=== PATIENT | male | born 1965 | race American Indian/Alaskan Native ===

== ENCOUNTER 2019-08-23 07:15 | Day surgery (SDC) | payer BC ==
[2019-08-23] MEDS ORDERED: ASPIRIN EC 325 MG TAB PO NR (08:24)
[2019-08-23 08:57] LABS: Basophils % (Auto) 0.7 % (0.0-1.8); Eosinophils # (Auto) 0.5 K/mm3 (0.0-0.4); Eosinophils % (Auto) 12.3 % (0.0-4.3); Hematocrit 42.6 % (35.5-45.6); Lymphocytes # (Auto) 1.6 K/mm3 (1.2-5.4); Lymphocytes % (Auto) 41.9 % (13.4-35.0); Mean Corpuscular HGB Conc 33 % (32-34); Mean Corpuscular Volume 82 fl (84-94); Monocytes # (Auto) 0.3 K/mm3 (0.0-0.8); Monocytes % (Auto) 8.5 % (0.0-7.3); Platelet Count 194 K/mm3 (140-440); Red Blood Count 5.18 M/mm3 (3.65-5.03); Red Cell Distribution Width 13.7 % (13.2-15.2)
[2019-08-23 09:05] LABS: BUN/Creatinine Ratio 21; Blood Urea Nitrogen 19 mg/dL (9-20); Calcium 8.8 mg/dL (8.4-10.2); Hemolysis Index 12
[2019-08-23] MEDS: SODIUM CHLORIDE 0.9% 500 ML 500 ML IV SCH ×2 (09:09→10:29)
[2019-08-23 09:19] LABS: INR 1.08 (0.87-1.13)
[2019-08-23] MEDS ORDERED: HEPARIN/NS 5000 UNIT/500ML 1,000 ML IR ONE (09:28)
[2019-08-23] MEDS ORDERED: HEPARIN 10,000 UNITS/10 ML VIAL ONE (09:28)
[2019-08-23] MEDS ORDERED: MIDAZOLAM 2 MG/2 ML INJ ONE (09:28)
[2019-08-23] MEDS ORDERED: VERAPAMIL 5 MG/2 ML INJ ONE (09:28)
[2019-08-23] MEDS ORDERED: fentaNYL 100 MCG/2 ML INJ ONE (09:28)
[2019-08-23] MEDS ORDERED: LIDOCAINE (2%) 20 MG/1 ML VIAL 20 ML MDV INFILTRATI ONE (09:29)
[2019-08-23] MEDS ORDERED: NITROGLYCERIN SYRINGE 3 ML ONE (09:29)
--- NOTE | 2019-08-23 10:52 | Short Stay Summary ---
Short Stay Documentation Date of service: 08/23/19 - History H&P: obtained from office - Allergies and Medications Current Medications: Allergies hydrocortisone Adverse Reaction (Unverified 08/23/19 07:16) Hives Home Medications Medication Instructions Recorded Confirmed Last Taken Type AtorvaSTATin [Lipitor] 10 mg PO QHS #30 tab 08/23/19 Unknown Rx Cyanocobalamin (Vitamin B-12) 800 mcg PO DAILY 08/23/19 08/23/19 08/22/19 History [Vitamin B12] Ergocalciferol [Vitamin D2] 1 cap PO QWEEK 08/23/19 08/23/19 1 Month Ago History ~07/23/19 Ranolazine [Ranexa] 500 mg PO BID #60 tab.er.12h 08/23/19 Unknown Rx Telmisartan [Micardis] 80 mg PO DAILY 08/23/19 08/23/19 08/22/19 History Active Medications Sodium Chloride (Nacl 0.9% 500 Ml) 500 mls @ 50 mls/hr IV DIRECT FELIX Stop: 08/23/19 18:59 Last Admin: 08/23/19 10:29 Dose: 50 mls/hr Documented by: - Brief post op/procedure progress note Date of procedure: 08/23/19 Pre-op diagnosis: abnormal stress test; cp Post-op diagnosis: other (mild CAD) Procedure: [facility] - see dictated cath report Anesthesia: local Estimated blood loss: none Condition: stable - Disposition Condition at discharge: Good Disposition: DC-01 TO HOME OR SELFCARE - Discharge Diagnoses (1) Mild CAD Status: Chronic Short Stay Discharge Plan Activity: advance as tolerated Diet: low fat, low cholesterol, low salt Wound: open to air, keep clean and dry, per your surgeon's advice Follow up with: GERRY HILTON MD [Primary Care Provider] - 7 Days ARGELIA GRAY MD [Staff Physician] - 7 Days Forms: CardCath PCI D/C Instructions Prescriptions: AtorvaSTATin [Lipitor] 10 mg PO QHS #30 tab Ranolazine [Ranexa] 500 mg PO BID #60 tab.er.12h
--- NOTE | 2019-08-23 11:55 | Cardiac Catherization Report ---
REFERRING PHYSICIAN: Caesar Hamilton MD PRIMARY CARE PHYSICIAN: Amy Do MD INDICATION FOR PROCEDURE: The patient is a pleasant 54-year-old -[place] gentleman with a history of hypertension, having recurrent chest pain with exertion, very typical symptoms with recurrent symptoms with abnormal treadmill stress test yesterday. He has discussed with his , Dr. Amy Do. Referred for left heart catheterization. Risks, benefits, potential alternatives explained at length prior to obtaining informed consent. PROCEDURE IN DETAIL: The patient was brought to catheterization lab in a postabsorptive state, prepped and draped in sterile fashion. Jeffery's test in right hand was normal. A 2 mL of 2% lidocaine used to anesthetize the right wrist. A standard 6-Greenlandic hydrophilic sheath used to cannulate the right radial artery via modified Seldinger technique. All exchanges performed to exchange a J-tip guidewire. JL3.5 catheter was used to engage the left main. No dampening or ventricularization. Cineangiography performed in multiple projections. JR4 catheter was used to cross the aortic valve under fluoroscopic guidance. Left ventriculography performed in 30 JOHNSON and 30 KAZAKH projections via hand injections, catheter flushed. Manual pullback performed with continuous pressure monitoring. Catheter used to engage the right coronary. No dampening or ventricularization. Cineangiography performed in all projections. Next, due to recurrent chest pain and unremarkable proximal and ostial coronary vessels, we decided to proceed with root aortogram in the KAZAKH projection with power injector and pigtail catheter. Next, catheter removed from the body of wire, sheath removed. Manual pressure used to achieve hemostasis. There were no immediate complications. I directly supervised the administration of moderate sedation from 9:59 a.m. to 10:40 a.m. with fentanyl and Versed. There were no immediate complications. RESULTS: Aortic pressure is 110/70, LV pressure is 110, LVEDP of 12 mmHg. Left ventriculography reveals normal systolic performance with estimated ejection fraction of 55-60%, normal LVEDP, normal sinus rhythm throughout. Coronary anatomy: This is a right dominant system. Left main without significant disease, bifurcates to left anterior descending and left circumflex. Left circumflex is a moderate sized vessel, courses AV groove. Scattered luminal irregularities, but no significant disease. LAD is a moderate sized vessel, courses anterior intergroove, wraps around the apex. There is normal small vessel tapering in the distal LAD, possible mild small vessel disease distally. No significant disease noted in the LAD or diagonal systems. The right coronary is a moderate sized vessel, courses AV groove, distally bifurcates in the posterior ____ and posterolateral branches. No discrete stenosis identified. Root aortogram reveals normal contour, normal great vessel anatomy, no evidence of aortic insufficiency. No evidence of dissection, penetrating aortic ulcer. CONCLUSIONS: 1. No angiographic evidence of significant epicardial coronary disease in this right dominant system. 2. Questionable mild diffuse small vessel disease distally in the distal LAD. Medical management. 3. Normal left ventricular systolic performance, estimated ejection fraction of 55-60%. 4. No evidence of aortic stenosis. 5. Normal LVEDP. 6. Normal root aortography without evidence of dissection, penetrating aortic ulcer, or aortic insufficiency. At this point, we will add low dose Ranexa. Results of the procedure were explained at length and reviewed at length with Dr. Do. We will start low dose Ranexa, primary and secondary prevention measures. Check a V/Q scan today. We will check a Holter monitor and echocardiogram in the office. Followup with me. Standard radial care. JOB# [id number] SBSteffany/BAUTISTA
--- NOTE | 2019-08-23 12:08 | Nuclear Medicine Report ---
VENTILATION PERFUSION PULMONARY SCINTIGRAPHY HISTORY: Chest pain, recent heart catheterization COMPARISON: 08/23/2019 chest radiograph. TECHNIQUE: Radiopharmaceutical was inhaled. Tc-99m-MAA was then injected. Ventilation and perfusion images were acquired. RADIOPHARMACEUTICAL: 16.7 mCi of Xe-133 inhaled 5.3 mCi of Tc-99m-MAA injected FINDINGS: VENTILATION: There is mild air trapping in the lower lung zones, left greater than right. PERFUSION: No significant segmental or non-segmental defect. Additional Findings: None. IMPRESSION: 1. Low probability for pulmonary embolism. Signer Name: Osmel Ash Jr, MD Signed: 08/23/2019 12:04 PM Workstation Name: [id number]
[2019-08-23 13:06] VITALS: BP 105/67
--- NOTE | 2019-08-23 14:11 | XRay Report ---
CHEST 1 VIEW INDICATION: chest pain. COMPARISON: None FINDINGS: Support devices: None. Heart: Within normal limits. Lungs/Pleura: No acute air space or interstitial disease. Additional findings: None. IMPRESSION: No acute findings. Signer Name: Osmel Ash Jr, MD Signed: 08/23/2019 2:07 PM Workstation Name: [id number]
== END 2019-08-23 13:30 | disposition home or self-care (01) ==
LOC: CATHLABREC 07:15
PROVIDERS: ATTEND Internal Medicine
DX: R07.89 Other chest pain (principal); R94.39 Abnormal result of other cardiovascular function study; I25.10 Atherosclerotic heart disease of native coronary artery without angina pectoris; I10 Essential (primary) hypertension; J40 Bronchitis, not specified as acute or chronic; Z79.899 Other long term (current) drug therapy; Z98.890 Other specified postprocedural states
CPT/HCPCS: 36415; 71045; 78582; 80048; 85025; 85610; 85730; 93005; 93010; 93458; 93567; 99156; 99157; A9540; A9558; C1894; J1644; J2250; J3010; J7040; Q9967